=== PATIENT | female | born 1990 | race Two or more races ===

== ENCOUNTER 2025-03-14 06:44 | Day surgery (SDC) | payer MEDICAID ==
[2025-03-11 15:31] LABS: Hematocrit 38.9 % (36.0-46.0); Hemoglobin 12.9 g/dL (12.2-16.2); Mean Corpuscular Hemoglobin 27.8 pg (28.0-32.0); Mean Corpuscular Volume 83.5 fL (80.0-100.0); Nucleated Red Blood Cells % 0.0 %
[2025-03-11 15:36] LABS: Urine Amorphous Crystal FEW /hpf (None Seen); Urine Protein, UAD Negative (Negative)
[2025-03-11 15:48] LABS: INR 0.99 (0.9-1.15); Partial Thromboplastin Time 27.3 SEC (24.5-34.5); Prothrombin Time 10.5 sec (9.3-11.8)
[2025-03-11 15:50] LABS: Alanine Aminotransferase 10 U/L (7-40); Albumin 4.1 g/dL (3.2-4.8); Alkaline Phosphatase 84 U/L (46-116); Anion Gap 11 (5-15); BUN/Creatinine Ratio 9.0 (10.0-20.0); Carbon Dioxide 24 mmol/L (20-31); Chloride 106 mmol/L (98-107); Glucose 88 mg/dL (74-106); Potassium 4.4 mmol/L (3.5-5.1); Sodium 141 mmol/L (136-145); Total Protein 7.3 g/dL (5.7-8.2)
[2025-03-11 15:51] LABS: Bilirubin, Total 0.7 mg/dL (0.2-1.0); Blood Urea Nitrogen 6 mg/dL (9-23); Calcium 8.7 mg/dL (8.7-10.4)
[~2025-03-14] VITALS: Ht 165.1 cm; Wt 104.3 kg
[2025-03-14] MEDS ORDERED: HYDROmorphone HCL 2 MG/ML VL/or syr IV PRN (07:45)
[2025-03-14] MEDS ORDERED: KETOROLAC TROMETH 30 MG/ML 1ML VIAL IV ONE (07:45)
[2025-03-14] MEDS ORDERED: METOCLOPRAMIDE HCL 5MG/ml INJ 2ml VIAL IV PRN (07:45)
[2025-03-14] MEDS ORDERED: MIDAZOLAM HCL 2MG/2ML 2ml VIAL (1mg/ml) ONE (07:57)
[2025-03-14] MEDS ORDERED: fentaNYL CITRATE 100 MCG/2 ML VL ONE (07:57)
[2025-03-14] MEDS ORDERED: ROCURONIUM 10MG/ML 10ML VIAL IV ONE (07:58)
[2025-03-14] MEDS ORDERED: PROPOFOL 10 MG/ML 20 ML IV ONE (07:58)
[2025-03-14] MEDS ORDERED: LIDOCAINE 2% (LOCAL ANESTH.) PF 5ml SDV ONE (07:58)
[2025-03-14] MEDS ORDERED: METOCLOPRAMIDE HCL 5MG/ml INJ 2ml VIAL ONE (07:58)
[2025-03-14] MEDS ORDERED: ONDANSETRON HCL 4 MG/2 ML VIAL ONE (07:58)
[2025-03-14] MEDS: LIDOCAINE W/ EPINEPHRINE 1% 20ML VIAL ONE (08:37)
[2025-03-14] MEDS: BUPIVACAINE HCL 0.25% P/F 10 ML VIAL ONE (08:37)
[2025-03-14] MEDS ORDERED: HYDROmorphone HCL 2 MG/ML VL/or syr ONE (08:43)
[2025-03-14] MEDS ORDERED: SODIUM CHLORIDE LOCK 10 ML ONE (08:52)
[2025-03-14] MEDS ORDERED: SUGAMMADEX 200mg/2ml Vial (100MG/ML) IV ONE (08:53)
--- NOTE | 2025-03-14 10:11 | DVHOP2 ---
Operative Report - 2 Report Details Date: 03/14/25 Preop Diagnosis: Right flank lipomatous mass Postop Diagnosis: Same Surgeon: Hector Hathaway MD Anesthesiologist: Jamie conroy CRNA Anesthesia: General Consent: The patient was informed of the risks and benefits of the procedure. These include but are not limited to complications of anesthesia, postoperative infection, incomplete relief of symptoms, recurrence of symptoms, damage to bl ood vessels, nerves and tendons, deep venous thrombosis, pulmonary embolism and possible need for repeat surgery in the future. Complications: None Estimated Blood Loss: 5 mL Findings: Lipomatous mass approximately 7 by 4 by 2 cm. Mass was under Donell's fascia, direct enveloped by serratus anterior muscle fascia around the 9th rib and adhered in his deepest point to the muscle. Indications for Surgery: Mass causing pain and discomfort, growing with time. Name of Procedure Performed Right flank mass excision Procedure Details Procedure Details: Upon arriving to the operating room the patient was transferred to the operating table and placed in the supine position. General endotracheal anesthesia was induced. Patient was then placed in the left lateral decubitus position. Time- out was observed. Patient was prepped and draped in the standard sterile surgical fashion with chlorhexidine. I then proceeded to make a linear incision overlying the previously marked mass site, along Langerhans lines in the right flank. I then carried the dissection through the subcutaneous tissue. I then opened Donell's fascia and once I opened Donell's fascia, I immediately noticed a bulge coming from deep within it. I then open the muscular fascia, of the serratus anterior, around the 9th rib. Once I opened the muscle fascia the bulge was pretty evident. I then proceeded to free the mass from surrounding tissue both bluntly with finger dissection and with cautery. Once the mass was circumferentially free from surrounding tissue, I was able to completely grab around it and it was only firmly attached deep to the underlying serratus ante rior muscle. At its deepest point I noted a small blood vessel attached to the mass, this blood vessel was ligated with 2-0 silk tie and transected. Mass was then completely freed up from the underlying muscle and was passed for specimen. Mass was approximately 7 cm x 4 cm x 2 cm. Wound was then irrigated, it was hemostatic. All counts were complete and correct. I then closed the serratus anterior muscle fascia with 3-0 Vicryl running. I then closed Donell fascia with 3-0 Vicryl running. I then reapproximated the subcutaneous tissue with a running 3-0 Vicryl. I then reapproximated the dermis with interrupted 3-0 Vicryl. Skin was closed with 4-0 Monocryl subcuticular fashion. 1% lidocaine with epinephrine was used as anesthetic for a local block. Prineo system was used over the incision. Patient tolerated the procedure well and was transferred to PACU in stable condition. Specimen: Lipomatous mass Condition Stable Disposition Home HECTOR DE MD Mar 14, 2025 10:11
[2025-03-14 10:12] VITALS: PULSE 96; RESP 13; O2SAT 99
[2025-03-14 10:22] VITALS: PULSE 81; RESP 13; O2SAT 95
[2025-03-14 10:57] VITALS: BP 118/61; PULSE 80; RESP 12; O2SAT 97
[2025-03-14] MEDS: ceFAZolin 2 GM/D5W50ml 50 ML IV ONE (11:12)
[2025-03-14] MEDS: ONDANSETRON HCL 4 MG/2 ML VIAL IV PRN (11:15)
== END 2025-03-14 11:32 | disposition home or self-care (01) ==
LOC: SUR 06:44
PROVIDERS: ATTEND Student in an Organized Health Care Education/Training Program
DX: D17.1 Benign lipomatous neoplasm of skin and subcutaneous tissue of trunk (principal); R19.00 Intra-abdominal and pelvic swelling, mass and lump, unspecified site; F41.9 Anxiety disorder, unspecified; E66.9 Obesity, unspecified; Z68.38 Body mass index [BMI] 38.0-38.9, adult; Z90.49 Acquired absence of other specified parts of digestive tract; Z90.89 Acquired absence of other organs; Z98.890 Other specified postprocedural states
CPT/HCPCS: 21933; 36415; 80053; 81001; 81025; 85025; 85610; 85730; 88304; J0690; J1171; J2003; J2250; J2405; J2704; J2765; J3010; J3490